=== PATIENT | male | born 1950 | race Caucasian/White ===

== ENCOUNTER 2023-05-10 08:00 | Outpatient (CLI) | payer SELFPAY ==
--- NOTE | 2023-05-10 16:51 | XRAY Report ---
PROCEDURE: Chest 2V INDICATIONS: PRODUCTIVE COUGH TECHNIQUE: 2 views of the chest were acquired. COMPARISON: None. FINDINGS: Surgical changes and devices: None. Lungs and pleura: No pleural effusions or pneumothorax. Extensive patchy bilateral pulmonary densiti es. Possible pleural plaques. Possible sizable right lung mass. Mild to moderate right pleural fluid. Compressive atelectasis, right lung base. Mediastinum: Mediastinal contours appear normal. Heart size is normal. Bones and chest wall: No suspicious bony lesions. Overlying soft tissues appear unremarkable. IMPRESSION: There is an extensive pulmonary process, of uncertain etiology bilaterally. There is a mild to moderate right pleural effusion with right basilar atelectasis. Comment: Recommend CT chest, preferably with contrast. Reviewed by: Jose Nino MD on 05/10/2023 4:50 PM [facility] Approved by: Jose Nino MD on 05/10/2023 4:50 PM [facility] Station ID: [id number]
== END 2023-05-10 23:59 | disposition home or self-care (01) ==
LOC: DI.S 08:00
PROVIDERS: ATTEND Physician Assistant Medical
DX: R91.8 Other nonspecific abnormal finding of lung field (principal); J90 Pleural effusion, not elsewhere classified; J98.11 Atelectasis

== ENCOUNTER 2023-05-14 15:39 | Emergency (ER) | payer SELFPAY ==
[2023-05-14 16:56] LABS: BASOPHILS # (AUTO) 0.1 10^3/uL (0.0-0.1); BASOPHILS % (AUTO) 0.6 %; EOSINOPHILS # (AUTO) 0.1 10^3/uL (0.0-0.7); EOSINOPHILS % (AUTO) 1.1 %; HGB - HEMOGLOBIN 16.4 g/dL (14.0-18.0); LYMPHOCYTES # (AUTO) 1.9 10^3/uL (1.5-3.5); LYMPHOCYTES % (AUTO) 19.6 %; MEAN CORPUSCULAR HEMOGLOBIN 29.5 pg (27.0-31.0); MEAN CORPUSCULAR HGB CONC 33.5 g/dL (32.0-36.0); MEAN CORPUSCULAR VOLUME 88.3 fL (80.0-94.0); MEAN PLATELET VOLUME 8.3 fL (7.4-11.4); MONOCYTES # (AUTO) 1.1 10^3/uL (0.0-1.0); MONOCYTES % (AUTO) 11.3 %; NEUTROPHILS # (AUTO) 6.6 10^3/uL (1.5-6.6); PLT - PLATELET COUNT 290 10^3/uL (130-450); RED BLOOD COUNT 5.55 10^6/uL (4.70-6.10); RED CELL DISTRIBUTION WIDTH 12.5 % (12.0-15.0); WHITE BLOOD COUNT 9.8 x10^3/uL (4.8-10.8)
[2023-05-14 17:10] LABS: ALBUMIN/GLOBULIN RATIO 1.2 (1.0-2.2); BILIRUBIN,TOTAL 0.5 mg/dL (0.2-1.0); CALCIUM 9.5 mg/dL (8.5-10.3); CREATININE 0.6 mg/dL (0.6-1.3); POTASSIUM 3.6 mmol/L (3.5-4.5); TOTAL PROTEIN 7.4 g/dL (6.4-8.9)
[2023-05-14 20:04] LABS: BASOPHILS # (AUTO) 0.1 10^3/uL (0.0-0.1); BASOPHILS % (AUTO) 0.5 %; EOSINOPHILS # (AUTO) 0.1 10^3/uL (0.0-0.7); HCT - HEMATOCRIT 49.9 % (42.0-52.0); HGB - HEMOGLOBIN 16.6 g/dL (14.0-18.0); LYMPHOCYTES # (AUTO) 2.2 10^3/uL (1.5-3.5); LYMPHOCYTES % (AUTO) 19.9 %; MEAN CORPUSCULAR HEMOGLOBIN 29.4 pg (27.0-31.0); MEAN CORPUSCULAR HGB CONC 33.3 g/dL (32.0-36.0); MEAN CORPUSCULAR VOLUME 88.3 fL (80.0-94.0); MEAN PLATELET VOLUME 8.4 fL (7.4-11.4); MONOCYTES # (AUTO) 1.1 10^3/uL (0.0-1.0); MONOCYTES % (AUTO) 9.7 %; NEUTROPHILS # (AUTO) 7.6 10^3/uL (1.5-6.6); NEUTROPHILS % (AUTO) 68.4 %; PLT - PLATELET COUNT 331 10^3/uL (130-450); RED BLOOD COUNT 5.65 10^6/uL (4.70-6.10); RED CELL DISTRIBUTION WIDTH 12.4 % (12.0-15.0); WHITE BLOOD COUNT 11.1 x10^3/uL (4.8-10.8)
--- NOTE | 2023-05-14 20:04 | ED Physician Documentation ---
History of Present Illness - Stated complaint Stated Complaint: SOA - Chief complaint Chief Complaint: Resp - History obtained from History obtained from: Patient - Additonal information Additional information: This is a very nice 73-year-old gentleman who presents with approximately 1 month 1 month long history of intermittent shortness of breath though more consistent recently. Patient states it started with what he thought was COVID about a month ago, he had general viral symptoms, achiness cough congestion shortness of breath. Symptoms generally subsided but he continued to have shortness of breath, more so with exertion. He has not had recurrence of the fever, still has occasional cough and sinus congestion however. He went to the walk-in clinic on 05/10 and an x-ray obtained at that time shows an extensive pulmonary process With bilateral pulmonary densities, a right pleural effusion and additional findings seen on CT scan. He was apparently advised to get a CT scan but he was under the impression that he was also getting antibiotics, because he went home, waited for the antibiotics and then decided that because he is not improving he will come in for the CT scan now. There is no new symptoms and actually feels a little bit better today but continues to have shortness of breath. Patient does recall chronic dust exposure from a vent that deposited dust into his bedroom. 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 He wonders if that may be contributing. Review of Systems Constitutional: reports: Reviewed and negative Nose: reports: Rhinorrhea / runny nose, Congestion Throat: reports: Reviewed and negative Cardiac: reports: Reviewed and negative Respiratory: reports: Dyspnea, Cough, Wheezing GI: reports: Reviewed and negative : reports: Reviewed and negative Skin: reports: Reviewed and negative Musculoskeletal: reports: Reviewed and negative PD PAST MEDICAL HISTORY - Past Medical History Past Medical History: No Cardiovascular: None Respiratory: None Neuro: None GI: None : None HEENT: None Psych: None Musculoskeletal: None Derm: None - Past Surgical History Past Surgical History: No - Present Medications Home Medications: Ambulatory Orders Medication Instructions Recorded Confirmed Doxycycline [Vibramycin] 100 mg PO BID #14 tablet 05/14/23 predniSONE [Deltasone] 40 mg PO DAILY 5 Days #10 tablet 05/14/23 - Allergies Allergies/Adverse Reactions: Allergies Allergy/AdvReac Type Severity Reaction Status Date / Time No Known Drug Allergies Allergy Verified 05/14/23 15:47 - Social History Does the pt smoke?: No Smoking Status: Never smoker Does the pt drink ETOH?: No Does the pt have substance abuse?: No - Immunizations Immunizations are current?: Yes PD ED PE NORMAL - Vitals Vital signs reviewed: Yes - General General: Alert and oriented X 3, No acute distress, Well developed/nourished - HEENT HEENT: Atraumatic, Pharynx benign - Neck Neck: Supple, no meningeal sign, No JVD - Cardiac Cardiac: RRR, No murmur - Respiratory Respiratory: No respiratory distress, Other ( right basilar crackles, no wheezes. non labored) - Abdomen Abdomen: Normal bowel sounds, Soft, Non tender, Non distended - Derm Derm: Normal color, Warm and dry, No rash - Neuro Neuro: Alert and oriented X 3 Eye Opening: Spontaneous Motor: Obeys Commands Verbal: Oriented GCS Score: 15 - Psych Psych: Normal mood, Normal affect Results - Vitals Vitals: Vital Signs - 24 hr 05/14/23 05/14/23 05/14/23 15:47 17:50 19:45 Temperature 36.8 C 36.6 C Heart Rate 100 94 86 Respiratory 16 16 16 Rate Blood Pressure 130/86 H 128/82 H 147/82 H O2 Saturation 92 94 98 05/14/23 21:19 Temperature Heart Rate 95 Respiratory 16 Rate Blood Pressure 133/85 H O2 Saturation 95 Oxygen O2 Source Room air - Labs Labs: Laboratory Tests 05/14/23 05/14/23 05/14/23 16:50 16:50 19:40 WBC 9.8 RBC 5.55 Hgb 16.4 Hct 49.0 MCV 88.3 MCH 29.5 MCHC 33.5 RDW 12.5 Plt Count 290 MPV 8.3 Neut # (Auto) 6.6 Lymph # (Auto) 1.9 Payette # (Auto) 1.1 H Eos # (Auto) 0.1 Baso # (Auto) 0.1 Absolute Nucleated RBC 0.00 Nucleated RBC % 0.0 Sodium 135 Potassium 3.6 Chloride 100 L Carbon Dioxide 28 Anion Gap 7.0 BUN 11 Creatinine 0.6 Estimated GFR (MDRD) 133 Glucose 103 Calcium 9.5 Total Bilirubin 0.5 AST 13 ALT 8 L Alkaline Phosphatase 115 Troponin I High Sens B-Natriuretic Peptide 21 Total Protein 7.4 Albumin 4.0 Globulin 3.4 Albumin/Globulin Ratio 1.2 Lipase 12 05/14/23 05/14/23 05/14/23 19:41 19:41 19:41 WBC 11.1 H RBC 5.65 Hgb 16.6 Hct 49.9 MCV 88.3 MCH 29.4 MCHC 33.3 RDW 12.4 Plt Count 331 MPV 8.4 Neut # (Auto) 7.6 H Lymph # (Auto) 2.2 Payette # (Auto) 1.1 H Eos # (Auto) 0.1 Baso # (Auto) 0.1 Absolute Nucleated RBC 0.00 Nucleated RBC % 0.0 Sodium 135 Potassium 3.8 Chloride 99 L Carbon Dioxide 26 Anion Gap 10.0 BUN 11 Creatinine 0.7 Estimated GFR (MDRD) 111 Glucose 111 H Calcium 9.6 Total Bilirubin 0.6 AST 13 ALT 9 L Alkaline Phosphatase 119 Troponin I High Sens 8.6 B-Natriuretic Peptide Cancelled Total Protein 7.8 Albumin 4.2 Globulin 3.6 Albumin/Globulin Ratio 1.2 Lipase 12 - Rads (name of study) No standard instances Relevant Findings:: Final report received PD Medical Decision Making - ED course Complexity details: reviewed old records, reviewed results, re-evaluated patient, considered differential, d/w patient, d/w family ED course: This is a very nice 73-year-old male who presents with cough and shortness of breath as described in HPI. He was seen recently in the clinic and had a chest x-ray which I reviewed which showed diffuse unspecified lung disease with a right pleural effusion. Patient actually feels quite a bit better today but he did receive a Dose of steroids a few days ago. He is not hypoxic and he is in no respiratory distress but was concerned about the ongoing symptoms. I had not received information about the prior chest x-ray initially and ordered a CTA to rule out PE as the initial story was that the patient had COVID recently and was still short of breath and was tachycardic. In any case, I did obtain a CTA of his chest which showed innumerable pulmonary nodules concerning for likely metastatic lung cancer, no PE. He also has a small right pleural effusion. I discussed these findings with the patient and his , and discussed next steps including following up with pulmonology for a biopsy and oncology as needed. The patient was given information on plant worker locally though it sounds as though they plan to pursue care at [facility] as his has seen a plant worker there in the past. At this time, patient is stable for discharge home, he has no oxygen requirements appears to be breathing very comfortably and is in no acute distress here. His other labs are stable. I will give him a course of doxycycline and prednisone in the event that some of this is infectious or inflammatory but he was strongly urged to get into see pulmonology and his PCP soon as possible. I discussed return precautions in detail with the patient. Departure - Departure Disposition: Home, Self Care Clinical Impression: Pulmonary nodule Condition: Good Follow-Up: Saba Colon MD [Physician No Access] - CALDERON MARTINEZ DO [Physician No Access] - Prescriptions: predniSONE [Deltasone] 40 mg PO DAILY 5 Days #10 tablet Doxycycline [Vibramycin] 100 mg PO BID #14 tablet Comments: Shawn, as we discussed, the CT scan Shows numerous pulmonary nodules. These are concerning for cancer though we cannot tell for sure from a CT scan. You will need to have a biopsy to determine. Your primary care may help refer you to pulmonology and oncology. The closest plant worker I can find is [facility] in [place]. Please call them at [phone]. Alternatively, you may try larger healthcare systems such as [facility] or [facility]. I am going to start you on antibiotics in the meantime and give you a short course of steroids to see if this helps until you can see a specialist. If at any point time you are worsening, please return to the ER. Medications sent to [facility] in [place]. Forms: PCP List
[2023-05-14 20:38] LABS: ALBUMIN 4.2 g/dL (3.2-5.5); ALBUMIN/GLOBULIN RATIO 1.2 (1.0-2.2); BILIRUBIN,TOTAL 0.6 mg/dL (0.2-1.0); CALCIUM 9.6 mg/dL (8.5-10.3); CREATININE 0.7 mg/dL (0.6-1.3); POTASSIUM 3.8 mmol/L (3.5-4.5); TOTAL PROTEIN 7.8 g/dL (6.4-8.9)
[2023-05-14] MEDS ORDERED: iohexoL-300 100 ML VIAL IVP ONE (20:40)
[2023-05-14 21:28] VITALS: BP 133/85; O2SAT 95
--- NOTE | 2023-05-14 21:37 | CT Report ---
PROCEDURE: Angio Chest INDICATIONS: r/o PE, SOB CONTRAST: 100 ML OMNI 300 TECHNIQUE: After the administration of intravenous contrast, 2 mm axial images were acquired from the pulmonary apices to the posterior costophrenic angles during the arterial phase. In addition, 1 mm lung kernel and 5 mm soft tissue kernel reconstructions were performed. 3-dimensional coronal oblique maximum int ensity projection (MIP) reformats, 8 mm axial MIP, and 5 mm coronal and sagittal MPR reformats were t hen performed through the thorax. For radiation dose reduction, the following was used: automated exp osure control, adjustment of mA and/or kV according to patient size. COMPARISON: Chest x-ray, 05/10/2023. FINDINGS: Image quality: Excellent. Large vessels: No filling defects within the opacified pulmonary arteries, accounting for motion and contrast timing. No evidence of acute aortic syndrome or aortic aneurysm. Lungs and pleura: There are innumerable pulmonary nodules bilaterally. There may be a mass in the rig ht lower lobe. There is right basilar consolidation. Small right pleural effusion. No pneumothorax. No suspicious pulmonary nodules which require follow up. Mediastinum: Heart size is normal. No pericardial effusion. No large vessel abnormality. Mild mediast inal and hilar adenopathy. For example, there is a 1.1 cm precarinal lymph node. A 1.7 cm subcarinal lymph node is identified. Right hilar lymph node measures 1.3 cm. Left hilar lymph node measures 1.2 cm. Chest wall and lower neck: Thyroid is unremarkable. No axillary or supraclavicular adenopathy by size . Bones: No aggressive osseous abnormality. Upper Abdomen: Comparison is not well seen, probably contracted. There is bilateral adrenal thickenin g without discrete adrenal mass.. IMPRESSION: 1. No pulmonary embolus. 2. Innumerable pulmonary nodules. There may be a mass in the right lower lobe. The CT findings are hi ghly suspicious for primary lung cancer with pulmonary metastases. Differential diagnoses are infecti ous or inflammatory nodules. Because of absence of right lower lobe consolidation, the masslike appea jermaine in the right lower lobe could be caused by consolidated lung. 3. Mild mediastinal and bilateral hilar lymphadenopathy, which is nonspecific and may be secondary to metastatic disease or reactive lymphadenopathy. 4. Small right pleural effusion. Reviewed by: Alicia Swenson MD on 05/14/2023 9:35 PM PST Approved by: Alicia Swenson MD on 05/14/2023 9:35 PM PST Station ID: [id number]
== END 2023-05-14 22:00 | disposition home or self-care (01) ==
LOC: ED 15:39
DX: R91.8 Other nonspecific abnormal finding of lung field (principal); J90 Pleural effusion, not elsewhere classified
CPT/HCPCS: 36415; 71275; 80053; 83690; 83880; 84484; 85025; 99284; Q9967